=== PATIENT | female | born 1955 | race Two or more races ===

== ENCOUNTER → 2024-08-26 | Emergency (ER) | payer OTHER ==
[~2024-08-26] VITALS: Ht 149.9 cm; Wt 77.1 kg
[~2024-08-26] MED LIST: NEURONTIN300 MG PO; ZOVIRAX5 GM TOP; ZOVIRAX800 MG PO
== END | disposition home or self-care (01) ==
LOC: ER 11:09
DX: B02.9 Zoster without complications (principal); R21 Rash and other nonspecific skin eruption